=== PATIENT | female | born 1985 | race Two or more races ===

== ENCOUNTER 2024-11-07 14:07 | Emergency (ER) | payer OTHER ==
[~2024-11-07] VITALS: Ht 149.9 cm; Wt 52.2 kg
[2024-11-07] MEDS ORDERED: IBUP-1955 PO (14:39)
[2024-11-07 14:49] VITALS: BP 90/62; TEMP 98.6; O2SAT 99
== END 2024-11-07 14:50 | disposition home or self-care (01) ==
LOC: EDBD 14:07 → ER 14:07
DX: N63.0 Unspecified lump in unspecified breast (principal); N64.4 Mastodynia
CPT/HCPCS: A4606; A4663